=== PATIENT | female | born 2000 | race Two or more races ===

== ENCOUNTER 2023-01-24 19:06 | Emergency (ER) | payer OTHER ==
[~2023-01-24] VITALS: Ht 162.6 cm; Wt 78.9 kg
== END 2023-01-24 22:51 | disposition home or self-care (01) ==
LOC: ER 19:06
DX: H10.33 Unspecified acute conjunctivitis, bilateral (principal)

== ENCOUNTER 2023-03-04 12:14 | Emergency (ER) | payer OTHER ==
[~2023-03-04] VITALS: Ht 152.4 cm; Wt 79.8 kg
[2023-03-04] MEDS ORDERED: TOBRADEX ST EYE5 ML OP (12:53)
== END 2023-03-04 13:02 | disposition home or self-care (01) ==
LOC: ER 12:15
DX: H10.9 Unspecified conjunctivitis (principal)